=== PATIENT | female | born 1960 | race Caucasian/White ===

== ENCOUNTER → 2017-01-10 | Outpatient (CLI) | payer BC ==
[2017-01-10 12:37] LABS: BASO % 0.6 %; BASO ABS # 0.03 K/uL (0-0.2); COMPLETE YES; EOS % 1.7 %; HEMATOCRIT 40.8 % (37-47); LYMPH ABS # 1.48 K/uL (1.2-3.4); MEAN CELL VOLUME 92.9 fL (80-100); MEAN CORPUSCULAR HEMOGLOBIN 31.7 pg (25-34); MEAN CORPUSCULAR HGB CONC 34.1 g/dl (32-36); MEAN PLATELET VOLUME 9.3 fL (7.4-10.4); MONO % 8.8 %; NEUT % 57.9 %; PLATELET COUNT 335 K/uL (130-400); RED BLOOD COUNT 4.39 M/uL (4.2-5.4); WHITE BLOOD COUNT 4.78 K/uL (4.8-10.8)
[2017-01-10 13:18] LABS: ALT/SGPT 31 U/L (12-78); AST/SGOT 18 U/L (15-37); BLOOD UREA NITROGEN 15 mg/dl (7-18); BUN/CREATININE RATIO 15.5 (10-20); CALCIUM 9.1 mg/dl (8.5-10.1); CARBON DIOXIDE 27 mmol/L (21-32); CHLORIDE 103 mmol/L (98-107); CREATININE 0.94 mg/dl (0.60-1.20); GLUCOSE 97 mg/dl (70-99); POTASSIUM 4.2 mmol/L (3.5-5.1); SODIUM 139 mmol/L (136-145)
[2017-01-10 13:29] LABS: ALB/GLOB RATIO 1.2 (0.9-2); ALKALINE PHOSPHATASE 73 U/L (45-117); CHOLESTEROL 236 mg/dl (0-200); HDL CHOLESTEROL 47 mg/dl; THYROID STIMULATING HORMONE 0.938 uIu/ml (0.300-4.500); TRIGLYCERIDES 128 mg/dl (0-150); VERY LOW DENSITY LIPOPROT CALC 26 mg/dl
== END | disposition home or self-care (01) ==
LOC: C.LABSPEC 12:15
PROVIDERS: ATTEND Internal Medicine
DX: Z01.419 Encounter for gynecological examination (general) (routine) without abnormal findings (principal); R53.83 Other fatigue; E78.5 Hyperlipidemia, unspecified

== ENCOUNTER → 2017-01-10 | Outpatient (CLI) | payer BC | END | disposition home or self-care (01) | LOC: C.PAPS 14:40 | PROVIDERS: ATTEND Internal Medicine | DX: Z01.419 Encounter for gynecological examination (general) (routine) without abnormal findings (principal) ==

== ENCOUNTER → 2017-04-24 | Outpatient (CLI) | payer BC ==
--- NOTE | 2017-04-25 07:53 | MAMMOGRAPHY REPORT ---
BILATERAL DIGITAL SCREENING MAMMOGRAM TOMOSYNTHESIS WITH CAD: 04/24/2017 CLINICAL HISTORY: Routine screening. Patient has no complaints. TECHNIQUE: Breast tomosynthesis in addition to standard 2D mammography was performed. Current study was also evaluated with a Computer Aided Detection (CAD) system. COMPARISON: Comparison is made to exams dated: 04/18/2016 mammogram, 04/14/2015 mammogram, 02/24/2014 m ammogram, 02/18/2013 mammogram, 02/13/2012 mammogram, and 09/19/2011 mammogram - [facility]. BREAST COMPOSITION: There are scattered areas of fibroglandular density in both breasts. FINDINGS: There is a 10 x 7 mm lobulated mass in the upper outer middle one third of the left breast , for which additional targeted ultrasound and possible additional spot compression tomosynthesis beverly mographic views is recommended. There are stable scattered and grouped benign-appearing round microcalcifications throughout the righ t greater than left breast. No other suspicious mass, architectural distortion or cluster of microca lcifications is seen. IMPRESSION: ACR BI-RADS CATEGORY 0: INCOMPLETE EVALUATION: NEED ADDITIONAL IMAGING EVALUATION The 10 x 7 mm lobulated mass in the left upper outer breast needs additional evaluation. The patient will be called to schedule an appointment. Approximately 10% of breast cancers are not detected with mammography. A negative mammographic report should not delay biopsy if a clinically suggestive mass is present. Tarah Wyatt M.D. ay/:04/24/2017 16:21:12 Almond Blancher Operator: Jody QUIJANO(Meagan)(Rony), [facility] letter sent: Addl Imaging 0 BI-RADS Code: ACR BI-RADS Category 0: Incomplete Evaluation: Need Additional Imaging Evaluation
== END | disposition home or self-care (01) ==
LOC: C.MAMM 09:24
PROVIDERS: ATTEND Internal Medicine
DX: Z12.31 Encounter for screening mammogram for malignant neoplasm of breast (principal)

== ENCOUNTER → 2017-05-01 | Outpatient (CLI) | payer BC ==
--- NOTE | 2017-05-01 12:36 | MAMMOGRAPHY REPORT ---
ULTRASOUND OF LEFT BREAST: 05/01/2017 CLINICAL HISTORY: 56-year-old woman called back from screening mammography for a 10 x 7 mm lobulated mass in the upper outer quadrant of the left breast. COMPARISON: Comparison is made to exams dated: 04/24/2017 mammogram, 04/18/2016 mammogram, 04/14/2015 m ammogram, 02/24/2014 mammogram, 02/18/2013 mammogram, and 02/13/2012 mammogram - [facility] [address] enter. FINDINGS: Targeted ultrasound was performed in the upper outer quadrant of the left breast to assess for the mammographic mass as described. In the 1:00 axis, 3 cm from the nipple, there is a multilobu lated predominantly anechoic cystic appearing mass measuring approximately 5.0 x 7.1 x 8.4 mm. This likely corresponds to the mammographic mass in question. No significant posterior acoustic enhanceme nt is appreciated. No internal vascularity. Although this most likely represents a lobulated cyst, definitive characterization with ultrasound guided cyst aspiration and post-aspiration mammography is recommended to ensure resolution. IMPRESSION: ACR BI-RADS CATEGORY 4: SUSPICIOUS - FOLLOW-UP RECOMMENDED 1. Ultrasound guided cyst aspiration is recommended for a probable 8.4 mm cyst in the 1:[address], thought to correspond to the mammographic finding. Post aspiration mammography should also be pe rformed to ensure mammographic resolution as well. These results and recommendations were discussed with the patient at the time of the exam. She tenta tively scheduled the procedure prior to leaving our department. Tarah Wyatt M.D. ay/:05/01/2017 10:36:23 Food Service Counter Clerk: Calista QUIJANO(Meagan)(M), [facility] letter sent: Abnormal 4/5 BI-RADS Code: ACR BI-RADS Category 4: Suspicious
== END | disposition home or self-care (01) ==
LOC: C.MAMM 09:57
PROVIDERS: ATTEND Internal Medicine
DX: N63.20 Unspecified lump in the left breast, unspecified quadrant (principal)

== ENCOUNTER → 2017-05-11 | Outpatient (CLI) | payer BC ==
--- NOTE | 2017-05-11 13:56 | MAMMOGRAPHY REPORT ---
UNILATERAL LEFT DIGITAL DIAGNOSTIC MAMMOGRAM TOMOSYNTHESIS: 05/11/2017 CLINICAL HISTORY: Status post aspiration of a left 1:00 breast mass. TECHNIQUE: Breast tomosynthesis in addition to standard 2D mammography was performed. Postprocedura l left CC and ML 2-D and tomosynthesis images were obtained. COMPARISON: Comparison is made to exams dated: 05/01/2017 ultrasound, 04/24/2017 mammogram, 04/18/2016 mammogram, 04/14/2015 mammogram, 02/24/2014 mammogram, and 02/18/2013 mammogram - [facility]. BREAST COMPOSITION: There are scattered areas of fibroglandular density in the left breast. FINDINGS: The previously seen lobulated mass in the left upper outer quadrant is less prominent and no longer clearly evident status post aspiration of the left 1:00 breast mass, indicating good correl ation between the aspirated sonographic mass and the mammographic mass. No significant postprocedura l hematoma is seen. IMPRESSION: ACR-BI-RADS CATEGORY 3: PROBABLY BENIGN The mammographic mass is less prominent and no longer clearly evident status post aspiration of the l eft 1:00 breast cyst, indicating good mammographic-sonographic correlation. Recommend follow-up diag nostic tomosynthesis mammograms and possible ultrasound of the left breast in 6 months to confirm sta bility. The patient has been verbally notified of the results. Approximately 10% of breast cancers are not detected with mammography. A negative mammographic report should not delay biopsy if a clinically suggestive mass is present. Dee Knowles M.D. ah/:05/11/2017 09:26:14 Medical Oncologist: Christel Davis, [facility] letter sent: Follow Up Recommended 3 BI-RADS Code: ACR-BI-RADS Category 3: Probably Benign
--- NOTE | 2017-05-11 13:56 | MAMMOGRAPHY REPORT ---
ASPIRATION LEFT BREAST: 05/11/2017 CLINICAL HISTORY: Left 1:00 breast mass. PATIENT CONSENT: The procedure and risks of ultrasound-guided cyst aspiration were discussed in full with the patient. Both oral and written consents were obtained. PROCEDURE DESCRIPTION: With ultrasound guidance, aseptic technique, and 1% lidocaine as a local anest hetic, the mass of concern in the left 1:00 breast was aspirated to completion. Benign type pinkish yellow fluid was obtained and discarded. Direct pressure was applied to the site immediately post pr ocedure and hemostasis was achieved. Post procedural unilateral mammograms were obtained after the p rocedure; see separate report for details. The patient tolerated the procedure without complication. COMPARISON: Comparison is made to exams dated: 05/01/2017 ultrasound, 04/24/2017 mammogram, 04/18/2016 mammogram, 04/14/2015 mammogram, 02/24/2014 mammogram, and 02/18/2013 mammogram - [facility]. IMPRESSION: ASPIRATION Ultrasound guided aspiration of the left 1:00 breast mass. Given that it completely aspirated, it is consistent with a benign cyst. The aspirated fluid was discarded. Recommend follow-up diagnostic t omosynthesis mammograms and possible ultrasound of the left breast in 6 months. Dee Knowles M.D. ah/:05/11/2017 09:22:32 Therapy Aide: Christel Davis, [facility]
== END | disposition home or self-care (01) ==
LOC: C.MAMM 08:48
PROVIDERS: ATTEND Internal Medicine
DX: N63.20 Unspecified lump in the left breast, unspecified quadrant (principal)

== ENCOUNTER → 2017-08-30 | Outpatient (CLI) | payer BC ==
[2017-09-06 16:42] LABS: FECAL OCCULT BLOOD #1 NEGATIVE (NEGATIVE); FECAL OCCULT BLOOD #2 NEGATIVE (NEGATIVE); FECAL OCCULT BLOOD #3 NEGATIVE (NEGATIVE)
== END | disposition home or self-care (01) ==
LOC: C.LAB 16:42
PROVIDERS: ATTEND Internal Medicine
DX: Z12.11 Encounter for screening for malignant neoplasm of colon (principal)

== ENCOUNTER → 2017-11-14 | Outpatient (CLI) | payer BC ==
--- NOTE | 2017-11-15 07:51 | MAMMOGRAPHY REPORT ---
UNILATERAL LEFT DIGITAL DIAGNOSTIC MAMMOGRAM TOMOSYNTHESIS WITH CAD: 11/14/2017 CLINICAL HISTORY: 57-year-old woman presents for follow-up in the left breast. She is 6 months statu s post aspiration of an 8 mm cyst in the 1:00 axis, and presents to ensure mammographicultrasound co rrelation. The cyst was aspirated to resolution based on ultrasound guidance. TECHNIQUE: Left breast tomosynthesis in addition to standard 2D mammography was performed. Current st udy was also evaluated with a Computer Aided Detection (CAD) system. COMPARISON: Comparison is made to exams dated: 05/11/2017 aspiration, 05/11/2017 mammogram, 7 ultrasound, 04/24/2017 mammogram, 04/18/2016 mammogram, and 04/14/2015 mammogram - [facility]. BREAST COMPOSITION: The tissue of the left breast is heterogeneously dense, which may obscure small masses. FINDINGS: The previously observed 8 mm focal asymmetry/mass in the 1:00 middle one third of the left breast is no longer seen, confirming benignity and ensuring mammographicsonographic correlation from the previously aspirated left 1:00 breast cyst. No new suspicious mass, architectural distortion or cluster of microcalcifications is seen. Recommend return to annual screening mammography schedule, due in March 2018. IMPRESSION: ACR BI-RADS CATEGORY 2: BENIGN The previously aspirated cyst in the 1:00 left breast has not reaccumulated. It is no longer identif ied, therefore considered benign. No new suspicious mammographic abnormality or evidence of malignan cy. Recommend return to annual screening mammography schedule, due in March 2018. Approximately 10% of breast cancers are not detected with mammography. A negative mammographic report should not delay biopsy if a clinically suggestive mass is present. Tarah Wyatt M.D. ay/:11/14/2017 09:18:52 Holter Technician: Christel Davis, [facility] letter sent: Normal 1/2 BI-RADS Code: ACR BI-RADS Category 2: Benign
== END | disposition home or self-care (01) ==
LOC: C.MAMM 08:56
PROVIDERS: ATTEND Internal Medicine
DX: Z98.890 Other specified postprocedural states (principal)